=== PATIENT | male | born 1950 ===

== ENCOUNTER 2020-07-07 21:42 | Inpatient (IN) | payer MEDICARE, OTHER ==
[~2020-07-07] VITALS: Ht 175.3 cm; Wt 81.6 kg
[2020-07-07] MEDS ORDERED: POLY17PO4 PO (22:19)
[2020-07-07] MEDS ORDERED: RISP1TAB97 PO (22:19)
[2020-07-07] MEDS ORDERED: SENN-261 PO (22:19)
[2020-07-07] MEDS ORDERED: DIPH50CA37 PO (22:19)
[2020-07-07] MEDS ORDERED: ASPI81TA31 PO (22:19)
[2020-07-07] MEDS ORDERED: HALO2TAB PO (22:19)
[2020-07-07] MEDS ORDERED: ATOR40TA PO (22:19)
[2020-07-07] MEDS ORDERED: ACET-73 PO (22:19)
[2020-07-07] MEDS ORDERED: diphenhydrAMINE 50 MG CAPSULE PO PRN (22:30)
[2020-07-07] MEDS ORDERED: MAGNESIUM HYDROXIDE 30 ML LIQUID UDC PO PRN (22:30)
[2020-07-07] MEDS ORDERED: SENNOSIDES 1 TABLET PO PRN (22:30)
[2020-07-07] MEDS ORDERED: ZOLPIDEM 5 MG TABLET PO PRN (22:30)
[2020-07-07] MEDS ORDERED: MAG HYDROX/AL HYDROX/SIMETH 30 ML LIQUID UDC PO PRN (22:30)
[2020-07-07] MEDS ORDERED: BLOOD SUGAR DIAGNOSTIC 1 EACH STRIP VI ONE (22:30)
[2020-07-07] MEDS ORDERED: MIRALAX 17 GM POWD.PACK PO PRN (22:30)
[2020-07-07] MEDS ORDERED: ACETAMINOPHEN 325 MG TABLET PO PRN (22:30)
[2020-07-08 07:03] LABS: BASOPHILS # (AUTO) 0.1 K/uL (0.0-8.0); BASOPHILS % (AUTO) 0.9 % (0.0-2.0); EOSINOPHILS # (AUTO) 0.4 K/uL (0.0-0.7); EOSINOPHILS % (AUTO) 5.9 % (0.0-7.0); HEMATOCRIT 43.1 % (36.7-47.1); HEMOGLOBIN 14.1 g/dL (12.5-16.3); LYMPHOCYTES # (AUTO) 1.5 K/uL (20.0-40.0); LYMPHOCYTES % (AUTO) 19.8 % (20.5-51.5); MEAN CORPUSCULAR HEMOGLOBIN 29.9 uug (23.8-33.4); MEAN CORPUSCULAR HGB CONC 33 g/dL (32.5-36.3); MONOCYTES # (AUTO) 0.6 K/uL (2.0-10.0); MONOCYTES % (AUTO) 7.6 % (0.0-11.0); NEUTROPHILS # (AUTO) 4.9 K/uL (1.8-8.9); NEUTROPHILS % (AUTO) 65.8 % (38.5-71.5); PLATELET COUNT (AUTO) 285 K/uL (152-348); RED BLOOD CELL COUNT(AUTO) 4.73 MIL/uL (4.06-5.63); WHITE BLOOD COUNT (AUTO) 7.4 K/uL (3.6-10.2)
[2020-07-08 07:26] LABS: THYROID STIMULATING HORMONE 5.865 mIU/mL (0.358-3.740)
[2020-07-08 07:30] VITALS: BP 135/86
[2020-07-08 07:46] LABS: BILIRUBIN,TOTAL 0.4 mg/dL (0.2-1.0); MAGNESIUM 2.1 mg/dL (1.8-2.4); POTASSIUM 4.1 mmol/L (3.5-5.1)
[2020-07-08] MEDS: ASPIRIN 81 MG TAB.CHEW PO SCH (08:36)
[2020-07-08] MEDS: LORAZEPAM 0.5 MG TABLET PO PRN (15:15)
[2020-07-08 15:33] VITALS: BP 118/83
[2020-07-08] MEDS: risperiDONE 1 MG TABLET PO SCH (16:29)
[2020-07-08] MEDS: CLOTRIMAZOLE 1% CREAM 30 GM TUBE TOP SCH (17:00)
[2020-07-08 20:14] VITALS: BP 126/69
[2020-07-08] MEDS: DIVALPROEX SPRINKLE 125 MG CAP.SPRINK PO SCH (20:14)
[2020-07-08] MEDS: ATORVASTATIN 40 MG TABLET PO SCH (20:14)
[2020-07-09 07:30] VITALS: BP 113/69
[2020-07-09] MEDS: ASPIRIN 81 MG TAB.CHEW PO SCH (08:04)
[2020-07-09] MEDS: risperiDONE 1 MG TABLET PO SCH ×2 (08:04→18:35)
[2020-07-09] MEDS: DIVALPROEX SPRINKLE 125 MG CAP.SPRINK PO SCH ×2 (08:04→22:33)
[2020-07-09] MEDS: CLOTRIMAZOLE 1% CREAM 30 GM TUBE TOP SCH ×2 (09:00→17:00)
[2020-07-09 16:00] VITALS: BP 115/71
[2020-07-09 20:37] VITALS: BP 115/73
[2020-07-09] MEDS: ATORVASTATIN 40 MG TABLET PO SCH (22:33)
[2020-07-10] MEDS: ASPIRIN 81 MG TAB.CHEW PO SCH (08:29)
[2020-07-10] MEDS: risperiDONE 1 MG TABLET PO SCH ×2 (08:29→17:37)
[2020-07-10] MEDS: DIVALPROEX SPRINKLE 125 MG CAP.SPRINK PO SCH ×2 (08:30→20:57)
[2020-07-10] MEDS: CLOTRIMAZOLE 1% CREAM 30 GM TUBE TOP SCH ×2 (08:33→17:37)
[2020-07-10] MEDS: LORAZEPAM 0.5 MG TABLET PO PRN (12:29)
[2020-07-10 16:37] VITALS: BP 105/64
[2020-07-10 20:17] VITALS: BP 116/62
[2020-07-10] MEDS: ATORVASTATIN 40 MG TABLET PO SCH (20:56)
[2020-07-11 07:30] VITALS: BP 99/60
[2020-07-11] MEDS: CLOTRIMAZOLE 1% CREAM 30 GM TUBE TOP SCH ×2 (08:23→16:16)
[2020-07-11] MEDS: DIVALPROEX SPRINKLE 125 MG CAP.SPRINK PO SCH ×2 (08:24→20:23)
[2020-07-11] MEDS: ASPIRIN 81 MG TAB.CHEW PO SCH (08:24)
[2020-07-11] MEDS: risperiDONE 1 MG TABLET PO SCH ×3 (08:24→20:23)
[2020-07-11 16:22] VITALS: BP 121/78
[2020-07-11 20:23] VITALS: BP 126/69
[2020-07-11] MEDS: ATORVASTATIN 40 MG TABLET PO SCH (20:23)
[2020-07-12 07:30] VITALS: BP 115/64
[2020-07-12] MEDS: ASPIRIN 81 MG TAB.CHEW PO SCH (08:15)
[2020-07-12] MEDS: risperiDONE 1 MG TABLET PO SCH ×3 (08:16→20:27)
[2020-07-12] MEDS: CLOTRIMAZOLE 1% CREAM 30 GM TUBE TOP SCH ×2 (08:16→16:54)
[2020-07-12] MEDS: DIVALPROEX SPRINKLE 125 MG CAP.SPRINK PO SCH ×2 (08:16→20:27)
[2020-07-12 15:55] VITALS: BP 105/70
[2020-07-12] MEDS: ATORVASTATIN 40 MG TABLET PO SCH (20:28)
[2020-07-12 20:36] VITALS: BP 118/73
[2020-07-13 08:00] VITALS: BP 111/73
[2020-07-13] MEDS: ASPIRIN 81 MG TAB.CHEW PO SCH (08:26)
[2020-07-13] MEDS: risperiDONE 1 MG TABLET PO SCH ×3 (08:27→20:25)
[2020-07-13] MEDS: DIVALPROEX SPRINKLE 125 MG CAP.SPRINK PO SCH ×2 (08:27→20:25)
[2020-07-13] MEDS: CLOTRIMAZOLE 1% CREAM 30 GM TUBE TOP SCH ×2 (08:29→16:06)
[2020-07-13 16:00] VITALS: BP 94/53
[2020-07-13 20:00] VITALS: BP 115/71
[2020-07-13] MEDS: ATORVASTATIN 40 MG TABLET PO SCH (20:25)
[2020-07-14 07:30] VITALS: BP 120/76
[2020-07-14] MEDS: risperiDONE 1 MG TABLET PO SCH ×3 (08:40→20:36)
[2020-07-14] MEDS: DIVALPROEX SPRINKLE 125 MG CAP.SPRINK PO SCH ×2 (08:40→20:36)
[2020-07-14] MEDS: ASPIRIN 81 MG TAB.CHEW PO SCH (08:40)
[2020-07-14] MEDS: CLOTRIMAZOLE 1% CREAM 30 GM TUBE TOP SCH ×2 (08:41→16:27)
[2020-07-14 09:29] LABS: *BILIRUBIN,URIN NEGATIVE (NEGATIVE); *CLARITY,URINE CLEAR (CLEAR); *COLOR,URINE YELLOW (YELLOW); *KETONES,URINE NEGATIVE (NEGATIVE); *UROBILINOGEN,URINE 0.2 E.U./dl (NORMAL); LEUKOCYTE ESTERASE ,URINE NEGATIVE (NEGATIVE); NITRITE, URINE NEGATIVE (NEGATIVE); UGLUCOSE NEGATIVE (NEGATIVE)
[2020-07-14 10:09] LABS: *BLOOD, URINE TRACE (NEGATIVE)
[2020-07-14 12:50] LABS: SQUAMOUS EPITHELIAL CELL,UR FEW /HPF (NONE SEEN); WBC,URINE 0-3 /HPF (0-3)
[2020-07-14 12:51] LABS: BACTERIA,URINE MODERATE /HPF (NONE SEEN)
[2020-07-14 16:00] VITALS: BP 134/81
[2020-07-14 20:00] VITALS: BP 127/72
[2020-07-14] MEDS: ATORVASTATIN 40 MG TABLET PO SCH (20:36)
[2020-07-15 07:30] VITALS: BP 117/68
[2020-07-15] MEDS: CLOTRIMAZOLE 1% CREAM 30 GM TUBE TOP SCH ×2 (08:23→16:46)
[2020-07-15] MEDS: ASPIRIN 81 MG TAB.CHEW PO SCH (08:23)
[2020-07-15] MEDS: DIVALPROEX SPRINKLE 125 MG CAP.SPRINK PO SCH ×2 (08:23→20:05)
[2020-07-15] MEDS: risperiDONE 1 MG TABLET PO SCH ×3 (08:23→20:05)
[2020-07-15 16:00] VITALS: BP 115/73
[2020-07-15 20:00] VITALS: BP 112/73
[2020-07-15] MEDS: ATORVASTATIN 40 MG TABLET PO SCH (20:05)
[2020-07-16 07:30] VITALS: BP 118/64
[2020-07-16] MEDS: ASPIRIN 81 MG TAB.CHEW PO SCH (10:34)
[2020-07-16] MEDS: risperiDONE 1 MG TABLET PO SCH ×3 (10:34→20:40)
[2020-07-16] MEDS: CLOTRIMAZOLE 1% CREAM 30 GM TUBE TOP SCH ×2 (10:35→17:00)
[2020-07-16] MEDS: DIVALPROEX SPRINKLE 125 MG CAP.SPRINK PO SCH ×2 (10:35→20:40)
[2020-07-16] MEDS: NITROFURANTOIN/NITROFURAN MAC 100 MG CAPSULE PO SCH ×2 (12:36→20:39)
[2020-07-16 16:30] VITALS: BP 98/52
[2020-07-16 20:38] VITALS: BP 128/78
[2020-07-16] MEDS: ATORVASTATIN 40 MG TABLET PO SCH (20:39)
[2020-07-17 07:30] VITALS: BP 124/76
[2020-07-17] MEDS ORDERED: DOCUSATE SODIUM 250 MG CAPSULE PO SCH (10:15)
[2020-07-17] MEDS: DIVALPROEX SPRINKLE 125 MG CAP.SPRINK PO SCH (10:32)
[2020-07-17] MEDS: NITROFURANTOIN/NITROFURAN MAC 100 MG CAPSULE PO SCH (10:32)
[2020-07-17] MEDS: risperiDONE 1 MG TABLET PO SCH (10:32)
[2020-07-17] MEDS: ASPIRIN 81 MG TAB.CHEW PO SCH (10:32)
[2020-07-17] MEDS: CLOTRIMAZOLE 1% CREAM 30 GM TUBE TOP SCH (10:33)
[2020-07-17] MEDS ORDERED: SENNOSIDES 1 TABLET PO SCH (21:00)
== END 2020-07-17 15:15 | DRG 885 ==
LOC: ER 21:48 → GPS 22:24 → EDBD 22:24
PROVIDERS: ADMIT Psychiatry & Neurology Psychiatry
PROC: 0HBRXZZ Excision of Toe Nail, External Approach (ICD-10-PCS; principal; 2020-07-08)
DX: F31.2 Bipolar disorder, current episode manic severe with psychotic features (principal); B95.2 Enterococcus as the cause of diseases classified elsewhere; N39.0 Urinary tract infection, site not specified; B35.1 Tinea unguium; I25.2 Old myocardial infarction; E78.5 Hyperlipidemia, unspecified; L60.2 Onychogryphosis; I25.10 Atherosclerotic heart disease of native coronary artery without angina pectoris; Z73.6 Limitation of activities due to disability; M79.672 Pain in left foot; M79.671 Pain in right foot; Z20.822 Contact with and (suspected) exposure to COVID-19; B96.1 Klebsiella pneumoniae [K. pneumoniae] as the cause of diseases classified elsewhere
CPT/HCPCS: 36415; 80164; 82652; 83735; 84100; 84443; 84481; 85025; 87077; 87086; A4663

== ENCOUNTER 2020-11-13 00:19 | Inpatient (IN) | payer MEDICARE, OTHER ==
[~2020-11-13] VITALS: Ht 167.6 cm; Wt 97.1 kg
[~2020-11-13 00:19] MED LIST: ACET-73 PO; ASPI81TA31 PO; ATOR40TA PO; DIPH50CA37 PO; POLY17PO4 PO; SENN-261 PO
--- NOTE | 2020-11-13 00:35 | NUR ---
PT BIB EMT from [facility] for a on 515 for DTS and GD; had delusions was trying to turn his room into a dental clinic. No SI. A/O x3, no SOB or labored breathing, afebrile. clear speech, complete sentences.
--- NOTE | 2020-11-13 00:36 | NUR ---
Dr. Moser at bedside, MSE in progress.
[2020-11-13 00:47] LABS: HEMATOCRIT 42.6 % (36.7-47.1); MEAN CORPUSCULAR HEMOGLOBIN 29.9 uug (23.8-33.4); MEAN CORPUSCULAR VOLUME 87.8 fL (73.0-96.2); PLATELET COUNT (AUTO) 261 K/uL (152-348)
[2020-11-13 00:54] LABS: CREATININE 1.3 mg/dL (0.6-1.3); POTASSIUM 4.2 mmol/L (3.5-5.1)
[2020-11-13 01:05] LABS: ACETAMINOPHEN < 2.0 ug/mL (10-30); BILIRUBIN,TOTAL 0.5 mg/dL (0.2-1.0); TOTAL PROTEIN, SERUM 8.3 g/dL (6.4-8.2)
[2020-11-13 01:07] LABS: ETHANOL < 3 MG/DL (0-0)
[2020-11-13 01:35] LABS: *BILIRUBIN,URIN NEGATIVE (NEGATIVE); *BLOOD, URINE 2+ (NEGATIVE); *CLARITY,URINE CLEAR (CLEAR); *KETONES,URINE NEGATIVE (NEGATIVE); *UROBILINOGEN,URINE 0.2 E.U./dl (NORMAL); LEUKOCYTE ESTERASE ,URINE NEGATIVE (NEGATIVE); NITRITE, URINE NEGATIVE (NEGATIVE); UGLUCOSE NEGATIVE (NEGATIVE)
[2020-11-13 01:37] LABS: *COLOR,URINE STRAW (YELLOW)
[2020-11-13 01:47] LABS: BACTERIA,URINE NONE SEEN /HPF (NONE SEEN); RBC,URINE 0-3 /HPF (0-3); SQUAMOUS EPITHELIAL CELL,UR NONE SEEN /HPF (NONE SEEN); WBC,URINE 0-3 /HPF (0-3)
[2020-11-13 01:50] LABS: *AMPHETAMINE, URINE NEGATIVE (NEGATIVE); *CANNABINOID, URINE NEGATIVE (NEGATIVE); *COCCAINE, URINE NEGATIVE (NEGATIVE); *OPIATE, URINE NEGATIVE (NEGATIVE); *PHENCYCLIDINE SCREEN,URINE NEGATIVE (NEGATIVE)
--- NOTE | 2020-11-13 02:45 | NUR ---
GAVE REPORT TO SPEEDY IN [facility].
--- NOTE | 2020-11-13 03:05 | NUR ---
Pt. admitted to MHU , under care of Dr. Nunez and Dr. Lee Dx: psychosis 5150 hold GTS and GD. Belongs List completed
--- NOTE | 2020-11-13 03:05 | NUR ---
Patient admitted to MHU. Patient was brought in via wheelchair by ER staff. Patient is under the care of Dr. Lee and Dr. Nunez. Patient shows no sign or symptom of respiratory distress, breathing even, unlabored. No indication of pain or discomfort. Cooperative during admission. Explained rules and policy. Oriented to the environment. Skin assessment done. No significant finding. Skin intact. Valuables and belongings checked and were place in storage. Patient was given advisement. Patient will remain in a psych facility for further evalaution and treatment.
[2020-11-13] MEDS ORDERED: ACETAMINOPHEN 650 MG SUPP.RECT RC PRN (04:00)
[2020-11-13 06:46] VITALS: BP 134/95
[2020-11-13 07:30] VITALS: BP 125/78
--- NOTE | 2020-11-13 09:58 | NUR ---
Firearms Report: Azure Developer completed and submitted a [employer]J firearms report for 5150 grave disability certifications. A copy of report has been placed in patient chart.
--- NOTE | 2020-11-13 10:21 | NUR ---
JUANIS Initial Discharge Plan: Patient currently resides at [address] [address] ([phone]) and will return upon discharge. Patient's nephew Geraldo Segura ([phone]) is involved in the patient's care and is the DPOA. JUANIS will continue to work with patient, family, and MD to ensure a safe and proper discharge plan.
--- NOTE | 2020-11-13 10:22 | NUR ---
Treatment Plan: Patient refused to sign treatment plan due to disorganized thought process.
--- NOTE | 2020-11-13 10:22 | NUR ---
SW SNF Contact: JUANIS spoke with Ana Rosa admin coordinator at [facility] [address] [facility], [place] [address] ([phone]) who confirmed that patient will return upon discharge.
--- NOTE | 2020-11-13 10:28 | NUR ---
JUANIS Family Contact: JUANIS spoke with patient's nephew Geraldo Segura ([phone]) and discussed treatment and discharge plan. Geraldo will be sending DPOA documents to this senior copywriter.
[2020-11-13] MEDS ORDERED: MIRALAX 17 GM POWD.PACK PO PRN (11:15)
[2020-11-13] MEDS ORDERED: SENNOSIDES 1 TABLET PO PRN (11:15)
[2020-11-13] MEDS ORDERED: hydrALAZINE HCL 25 MG TABLET PO PRN (12:00)
[2020-11-13] MEDS: ASPIRIN 81 MG TAB.CHEW PO SCH (12:38)
--- NOTE | 2020-11-13 13:09 | NUR ---
DPOA DOCUMENTS: Patient's son Geraldo Segura ([phone]) provided the DPOA documents and they have been placed in the patient's chart.
[2020-11-13 16:00] VITALS: BP 138/90
[2020-11-13] MEDS: risperiDONE 1 MG TABLET PO SCH ×2 (17:11→20:28)
--- NOTE | 2020-11-13 18:14 | NUR ---
GPS: pt alert and oriented x3. pt no suicidal ideation at this time. no aggrssive behavior noted. attention seeking and asking nurse for personal questions, like asking for last name. pt still insisted of asking to be discharge because he has to be in an important meeting.
[2020-11-13 20:00] VITALS: BP 110/85
[2020-11-13] MEDS: DIVALPROEX 250 MG TABLET.DR PO SCH (20:27)
[2020-11-13] MEDS: ATORVASTATIN 40 MG TABLET PO SCH (20:27)
--- NOTE | 2020-11-13 21:17 | NUR ---
AAOx3. Ambulatory with walker. Continent of bowel and bladder. Denies any pain nor any discomfort. Calm and cooperative. No aggresive behavior noted. No suicidal ideation noted. All needs attended. VSS. Kept comfortable. Will monitor patient. Compliant with meds. No acute distress noted.
--- NOTE | 2020-11-14 06:34 | NUR ---
End of shift notes: Had a quiet night last night. No behavioral issues noted. Slept 7hrs & 45 minutes. No complaints presented during shift.
[2020-11-14 07:19] LABS: BILIRUBIN,TOTAL 0.5 mg/dL (0.2-1.0); CREATININE 1.1 mg/dL (0.6-1.3); POTASSIUM 4.4 mmol/L (3.5-5.1); TOTAL PROTEIN, SERUM 7.3 g/dL (6.4-8.2)
[2020-11-14 07:30] VITALS: BP 119/79
[2020-11-14] MEDS: DIVALPROEX 250 MG TABLET.DR PO SCH ×2 (08:40→20:03)
[2020-11-14] MEDS: ASPIRIN 81 MG TAB.CHEW PO SCH (08:41)
[2020-11-14] MEDS: risperiDONE 1 MG TABLET PO SCH ×3 (08:41→20:04)
[2020-11-14 16:37] VITALS: BP 120/85
--- NOTE | 2020-11-14 18:13 | NUR ---
GPS: pt alert and verbally responsive during the shift. no pain complaint today. pt still looks for attention. talking about how he wants to go out of this place to go to his rehab place to get an important thing
[2020-11-14] MEDS: ATORVASTATIN 40 MG TABLET PO SCH (20:03)
[2020-11-14 20:20] VITALS: BP 150/88
[2020-11-14] MEDS: TEMAZEPAM 7.5 MG CAPSULE PO PRN (22:05)
--- NOTE | 2020-11-15 06:22 | NUR ---
Patient slept 1.30 hrs.No episodes of agitation and combative during the shift. Compliant with medication and tx.Ambulates with the use of walker. Patient noted falling asleep in the chair in his room.Assisted patient back to his bed. Denies SI/HI.Restoril was given and was ineffective. Offered ativan but refused .
[2020-11-15 07:30] VITALS: BP 113/65
[2020-11-15] MEDS: ASPIRIN 81 MG TAB.CHEW PO SCH (08:29)
[2020-11-15] MEDS: risperiDONE 1 MG TABLET PO SCH ×3 (08:30→20:51)
[2020-11-15] MEDS: DIVALPROEX 250 MG TABLET.DR PO SCH ×2 (08:30→20:51)
[2020-11-15 15:15] VITALS: BP 144/82
[2020-11-15] MEDS: ACETAMINOPHEN 325 MG TABLET PO PRN (16:12)
[2020-11-15] MEDS ORDERED: MAGNESIUM HYDROXIDE 30 ML LIQUID UDC PO PRN (16:15)
[2020-11-15] MEDS: MAG HYDROX/AL HYDROX/SIMETH 30 ML LIQUID UDC PO PRN (16:30)
[2020-11-15 20:01] VITALS: BP 141/82
[2020-11-15] MEDS: ATORVASTATIN 40 MG TABLET PO SCH (20:51)
[2020-11-15] MEDS: LORAZEPAM 1 MG TABLET PO PRN (21:10)
[2020-11-15] MEDS: TEMAZEPAM 7.5 MG CAPSULE PO PRN (22:28)
[2020-11-15] MEDS: diphenhydrAMINE 50 MG CAPSULE PO PRN (22:29)
[2020-11-16 07:43] LABS: BILIRUBIN,TOTAL 0.9 mg/dL (0.2-1.0); POTASSIUM 3.8 mmol/L (3.5-5.1); TOTAL PROTEIN, SERUM 6.5 g/dL (6.4-8.2)
[2020-11-16] MEDS: ASPIRIN 81 MG TAB.CHEW PO SCH (09:06)
[2020-11-16] MEDS: DIVALPROEX 250 MG TABLET.DR PO SCH ×3 (09:06→16:34)
[2020-11-16] MEDS: risperiDONE 1 MG TABLET PO SCH ×3 (09:06→21:13)
[2020-11-16 09:10] VITALS: BP 102/62
[2020-11-16] MEDS ORDERED: ZOLPIDEM 5 MG TABLET PO PRN (12:30)
--- NOTE | 2020-11-16 13:01 | NUR ---
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
[2020-11-16] MEDS: ACETAMINOPHEN 325 MG TABLET PO PRN ×2 (14:34→21:10)
[2020-11-16] MEDS: LORAZEPAM 1 MG TABLET PO PRN (14:34)
[2020-11-16 16:35] VITALS: BP 118/77
[2020-11-16 20:00] VITALS: BP 124/79
[2020-11-16] MEDS: diphenhydrAMINE 50 MG CAPSULE PO PRN (21:10)
[2020-11-16] MEDS: ATORVASTATIN 40 MG TABLET PO SCH (21:10)
[2020-11-17] MEDS: MAG HYDROX/AL HYDROX/SIMETH 30 ML LIQUID UDC PO PRN (03:15)
[2020-11-17 06:50] LABS: HEMATOCRIT 39.3 % (36.7-47.1); MEAN CORPUSCULAR HEMOGLOBIN 30.9 uug (23.8-33.4); MEAN CORPUSCULAR VOLUME 89.3 fL (73.0-96.2); PLATELET COUNT (AUTO) 245 K/uL (152-348)
[2020-11-17 07:08] LABS: BILIRUBIN,TOTAL 0.6 mg/dL (0.2-1.0); CREATININE 1.1 mg/dL (0.6-1.3); TOTAL PROTEIN, SERUM 8.1 g/dL (6.4-8.2)
[2020-11-17 07:14] LABS: MAGNESIUM 2.2 mg/dL (1.8-2.4); PHOSPHOROUS 3.4 mg/dL (2.5-4.9)
[2020-11-17 07:46] VITALS: BP 113/85
[2020-11-17] MEDS: risperiDONE 1 MG TABLET PO SCH ×3 (08:14→21:01)
[2020-11-17] MEDS: LORAZEPAM 1 MG TABLET PO PRN ×2 (08:14→16:54)
[2020-11-17] MEDS: ASPIRIN 81 MG TAB.CHEW PO SCH (08:15)
[2020-11-17] MEDS: ACETAMINOPHEN 325 MG TABLET PO PRN ×3 (08:15→23:50)
[2020-11-17] MEDS: DIVALPROEX 250 MG TABLET.DR PO SCH ×3 (08:15→16:36)
[2020-11-17] MEDS ORDERED: HYDROCODONE/APAP 5-325MG TABLET PO PRN (11:00)
[2020-11-17 16:48] VITALS: BP 128/89
--- NOTE | 2020-11-17 17:38 | NUR ---
GPS: Nursing Notes: X-Ray of Right Ankle: Dr. Medrano informed of right ankle x-ray, Per Dr. Medrano to transfer patient to Med. Surg. with a Dx: Right ankle fracture, informed charge nurse and nursing cold storage supervisor, continue to monitor patient for safety, continue with treatment plan.
[2020-11-17] MEDS ORDERED: DIVA250T4 PO (17:46)
--- NOTE | 2020-11-17 18:05 | NUR ---
GPS: Nursing Notes: Discharge to Med. Surg: Dr. Lee informed of patient right ankle fracture, ordered to discharge patient to Med. Surg., and to discontinue 5250, continue with his psych. medications, continue to monitor for safety.
--- NOTE | 2020-11-17 19:12 | NUR ---
GPS: Nursing Notes: Discharge to Med. Surg: Med. Surg. discharge of patient endorsed to incoming shift nurse to continue with discharge process per physician's order.
--- NOTE | 2020-11-17 20:00 | NUR ---
received to care, up in wheel chair, propelling self in hallway, pleasant upon support. denies s/i, no distress noted. pt is aware of planned transfer to med surgical floor. compliant with medications and staff direction. will continue to monitor closely.
[2020-11-17 20:08] VITALS: BP 126/84
[2020-11-17] MEDS: ATORVASTATIN 40 MG TABLET PO SCH (21:01)
--- NOTE | 2020-11-17 22:32 | NUR ---
pt remains on unit. assigned to room 303. Dr Medrano was called, and notified of room number, and that pt will be transferred shortly.
--- NOTE | 2020-11-17 22:46 | NUR ---
pt transfered to room 303, via wheelchair. pt left unit in no distress, denied any current pain.
--- NOTE | 2020-11-17 23:25 | NUR ---
CORRECTION OF PREVIOUS NOTE; pt has not been transferred yet, currently in room, awaiting transfer, quietly talking to himself.
--- NOTE | 2020-11-18 | NUR ---
pt transferred to med surg room, via wheelchair, in no acute distress. medicated with tylenol for right foot pain. report given to BAN driscoll
[2020-11-18] MEDS ORDERED: HYDR25TA86 PO (01:44)
[2020-11-18] MEDS ORDERED: HYDR-3972 PO (01:44)
[2020-11-18] MEDS ORDERED: LORA-259 PO (01:44)
[2020-11-18] MEDS ORDERED: MAGN400O6 PO (01:44)
[2020-11-18] MEDS ORDERED: RISP1TAB7 PO ×2 (01:44)
[2020-11-18] MEDS ORDERED: ZOLP10TA2 PO (01:44)
--- NOTE | 2020-11-18 08:18 | NUR ---
Transfer Note: Patient was transferred to medical floor for fracture. Dr. Lee discontinued hold. Patient is from [facility] [address] [place] [address] ([phone]). Cezar Chow ([phone]) is involved in patient's care. Dr. Lee will follow pt at [place].
[2020-11-24] MEDS ORDERED: RISP1TAB7 PO ×2 (13:38)
[2020-11-24] MEDS ORDERED: ACET325T53 PO (13:38)
[2020-11-24] MEDS ORDERED: SENN-18 PO (13:38)
[2020-11-24] MEDS ORDERED: MULT-594 PO (13:38)
[2020-11-24] MEDS ORDERED: ATOR10TA PO (13:38)
[2020-11-24] MEDS ORDERED: HYDR-894 PO (13:38)
[2020-11-24] MEDS ORDERED: HYDR-3980 PO (13:38)
== END 2020-11-18 | disposition short-term general hospital (02) | DRG 885 ==
LOC: ER 00:22 → GPS 02:40
PROVIDERS: ADMIT Psychiatry & Neurology Psychiatry; ATTEND Internal Medicine
DX: F31.2 Bipolar disorder, current episode manic severe with psychotic features (principal); E87.1 Hypo-osmolality and hyponatremia; E78.5 Hyperlipidemia, unspecified; I10 Essential (primary) hypertension; I25.10 Atherosclerotic heart disease of native coronary artery without angina pectoris; R63.1 Polydipsia; Z73.6 Limitation of activities due to disability; Z20.822 Contact with and (suspected) exposure to COVID-19; S82.51XA Displaced fracture of medial malleolus of right tibia, initial encounter for closed fracture; X58.XXXA Exposure to other specified factors, initial encounter; Y93.9 Activity, unspecified; Y92.129 Unspecified place in nursing home as the place of occurrence of the external cause
CPT/HCPCS: 36415; 71045; 73610; 80164; 83735; 83930; 83935; 84100; 84300; 85025; 93005; 97161; A4663; G0480; J3490; Q0163

== ENCOUNTER 2020-11-18 01:06 | Inpatient (IN) | payer MEDICARE, OTHER ==
[2020-11-17 23:30] VITALS: BP 109/67
--- NOTE | 2020-11-17 23:30 | NUR ---
RECEIVED PT FROM MHU VIA WHEELCHAIR. PT IN NO ACUTE DISTRESS. ADMISSION PROCESS AND CARE PLAN INITIATED. BELONGING LIST DONE. SAFETY AND COMFORT PROVIDED. WILL CONTINUE TO MONITOR.
[~2020-11-18] VITALS: Ht 165.1 cm; Wt 97.2 kg
[~2020-11-18 01:06] MED LIST changes: +DIVA250T4 PO
[2020-11-18] MEDS ORDERED: HYDR-3972 PO (01:44)
[2020-11-18] MEDS ORDERED: RISP1TAB7 PO ×2 (01:44)
[2020-11-18] MEDS ORDERED: LORA-259 PO (01:44)
[2020-11-18] MEDS ORDERED: MAGN400O6 PO (01:44)
[2020-11-18] MEDS ORDERED: ZOLP10TA2 PO (01:44)
[2020-11-18] MEDS ORDERED: HYDR25TA86 PO (01:44)
[2020-11-18 04:30] VITALS: BP 115/74
--- NOTE | 2020-11-18 05:19 | NUR ---
PT SLEPT INTERMITTENTLY. PT IN NO ACUTE DISTRESS. IV INTACT. SAFETY AND COMFORT PROVIDED. WILL ENDORSE TO INCOMING NURSE FOR CONTINUITY OF CARE.
[2020-11-18 06:28] LABS: HEMATOCRIT 35.5 % (36.7-47.1); MEAN CORPUSCULAR HEMOGLOBIN 30.7 uug (23.8-33.4); MEAN CORPUSCULAR VOLUME 89.4 fL (73.0-96.2); PLATELET COUNT (AUTO) 220 K/uL (152-348)
[2020-11-18 06:56] LABS: CREATININE 1.1 mg/dL (0.6-1.3); MAGNESIUM 2.2 mg/dL (1.8-2.4); PHOSPHOROUS 4.2 mg/dL (2.5-4.9); POTASSIUM 4.4 mmol/L (3.5-5.1)
--- NOTE | 2020-11-18 08:19 | NUR ---
Transfer Note: Patient was transferred to medical floor for fracture. Dr. Lee discontinued hold. Patient is from [facility] [address] [place] [address] ([phone]). Cezar Chow ([phone]) is involved in patient's care. Dr. Lee will follow pt at [place].
[2020-11-18 11:53] VITALS: BP 110/79
[2020-11-18] MEDS ORDERED: MIRALAX 17 GM POWD.PACK PO PRN (12:00)
[2020-11-18] MEDS ORDERED: hydrALAZINE HCL 25 MG TABLET PO PRN (12:00)
[2020-11-18] MEDS ORDERED: SENNOSIDES 1 TABLET PO PRN (12:00)
[2020-11-18] MEDS ORDERED: diphenhydrAMINE 50 MG CAPSULE PO PRN (12:00)
[2020-11-18] MEDS: DIVALPROEX 250 MG TABLET.DR PO SCH ×2 (13:25→16:56)
[2020-11-18] MEDS: CEFAZOLIN 2 G in IV DEXTROSE 5% 100 ML IV SCH ×2 (13:43→21:18)
[2020-11-18 15:58] VITALS: BP 136/87
[2020-11-18] MEDS: risperiDONE 1 MG TABLET PO SCH ×2 (16:56→20:32)
--- NOTE | 2020-11-18 18:30 | NUR ---
Received patient in his room, noted with episodes of delusions, he stated he is writing a script, that he needs someone to sign as witness. All needs attended. Informed MD regarding medication reconciliation. All due medications was given. Frequent safety checks done. Informed the patient to use the call light, he is high risk for falls. He walks to the bathroom unaware of safety measures with the use of his cane. No distress noted. denies pain. Will endorse to the next shift.
--- NOTE | 2020-11-18 20:12 | NUR ---
Received patient in his wheelchair.Able to wheeled himself in the hallway.Assisted patient back to his room. Continue to be delusional stated he wants to continue to write a script.Patient calm and pleasant upon approach.Compliant with medication.Adm IV ATb as ordered. No a/r noted. Ambien given for sleep.Noted ineffective. Quite environment provided.Will continue to monitor.
[2020-11-18] MEDS: ZOLPIDEM 5 MG TABLET PO PRN (21:19)
[2020-11-18] MEDS: HYDROCODONE/APAP 5-325MG TABLET PO PRN (22:32)
[2020-11-19] MEDS: CEFAZOLIN 2 G in IV DEXTROSE 5% 100 ML IV SCH ×3 (05:41→21:27)
[2020-11-19 06:05] LABS: HEMATOCRIT 37.8 % (36.7-47.1); MEAN CORPUSCULAR HEMOGLOBIN 30.5 uug (23.8-33.4); MEAN CORPUSCULAR VOLUME 89.7 fL (73.0-96.2); PLATELET COUNT (AUTO) 261 K/uL (152-348)
[2020-11-19 06:25] LABS: BILIRUBIN,TOTAL 0.4 mg/dL (0.2-1.0); CREATININE 1.1 mg/dL (0.6-1.3); MAGNESIUM 2.1 mg/dL (1.8-2.4); PHOSPHOROUS 3.3 mg/dL (2.5-4.9); POTASSIUM 4.2 mmol/L (3.5-5.1); TOTAL PROTEIN, SERUM 8.1 g/dL (6.4-8.2)
--- NOTE | 2020-11-19 08:00 | NUR ---
awake alert, wanting somebody to stay and talk with him, denies of pain, both lower extremities swollen, compliant with meds and care, safety measures maintained
--- NOTE | 2020-11-19 10:00 | NUR ---
sitting in a wheelchair and goes on the hallway but been instructed not to go far
[2020-11-19] MEDS: risperiDONE 1 MG TABLET PO SCH ×3 (10:29→20:28)
[2020-11-19] MEDS: ASPIRIN 81 MG TAB.CHEW PO SCH (10:29)
[2020-11-19] MEDS: DIVALPROEX 250 MG TABLET.DR PO SCH ×3 (10:29→16:55)
[2020-11-19 11:15] VITALS: BP 125/80
--- NOTE | 2020-11-19 15:00 | NUR ---
seen by Dr Lee- see notes
[2020-11-19 15:51] VITALS: BP 138/81
--- NOTE | 2020-11-19 17:23 | NUR ---
no distress noted, compliant with care, answers questions when asked, call light within reach
[2020-11-19 20:00] VITALS: BP 126/84
[2020-11-19] MEDS ORDERED: ATORVASTATIN 20 MG TABLET PO SCH (21:00)
[2020-11-20 04:12] VITALS: BP 140/89
--- NOTE | 2020-11-20 05:00 | NUR ---
Pt in wheelchair, able to wheel himself around. Denies pain or SOB. IV was not flushing well, new IV inserted. Able to make needs known. Patient exhibits needy behavior. Safety and comfort provided. No other issues or concerns at this time, will endorse to day shift.
[2020-11-20] MEDS: ACETAMINOPHEN 325 MG TABLET PO PRN (05:48)
[2020-11-20] MEDS: CEFAZOLIN 2 G in IV DEXTROSE 5% 100 ML IV SCH ×3 (05:48→21:51)
--- NOTE | 2020-11-20 07:40 | NUR ---
Received patient on his wheelchair. No distress noted. IV intact. Seen by Dr. Lee. Follow up with Dr. Luevano, for consultation. Patient denies pain. Safety checks done. Will continue to monitor.
[2020-11-20 08:00] VITALS: BP 122/64
[2020-11-20 08:04] VITALS: BP 113/79
[2020-11-20] MEDS: ASPIRIN 81 MG TAB.CHEW PO SCH (08:23)
[2020-11-20] MEDS: risperiDONE 1 MG TABLET PO SCH ×3 (08:23→20:12)
[2020-11-20] MEDS: DIVALPROEX 250 MG TABLET.DR PO SCH ×3 (08:23→16:56)
[2020-11-20 14:59] VITALS: BP 119/65
--- NOTE | 2020-11-20 19:00 | NUR ---
Patient needs redirection and reinforcement at all times. Denies pain. Frequent checks done. MD made rounds. Orders endorsed to the next shift. Per Dr Ochoa he will put an order for the xray plan of Dr. Luevano. All needs attended. No distess identified. Endorsed to the next shift for continuity of carer
[2020-11-20 20:10] VITALS: BP 121/86
[2020-11-20] MEDS: HYDROCODONE/APAP 5-325MG TABLET PO PRN (20:12)
[2020-11-20] MEDS: ATORVASTATIN 10 MG TABLET PO SCH (20:12)
--- NOTE | 2020-11-20 20:15 | NUR ---
RECEIVED PATIENT AWAKE IN WHEELCHAIR IN HALLWAY. PATIENT REDIRECTED BACK TO HIS ROOM. A/O X3. C/O PAIN IN RIGHT ANKLE. SWELLING AND REDNESS NOTED TO BILATERAL FEET. PATIENT GIVEN NORCO 1 TAB PO PRN FOR PAIN. VS WNL. NO RESP. DISTRESS NOTED. H/L INTACT AND PATENT, NOTED TO LEFT FA #20 GAUGE. CALL LIGHT IN REACH. ALL NEEDS ATTENDED. WILL CONTINUE TO MONITOR AND ASSESS.
--- NOTE | 2020-11-20 23:02 | NUR ---
SPOKE WITH NURSING PUBLIC HEALTH AIDE. PATIENT WILL HAVE SURGERY FOR ORIF OF RIGHT ANKLE ON TUESDAY 0900AM. PATIENT NEEDS TO BE MEDICALLY CLEARED. DR. QUEZADA NOTIFIED. WILL CONTINUE TO MONITOR AND ASSESS. ALL NEEDS ATTENDED.
[2020-11-21] MEDS: LORAZEPAM 1 MG TABLET PO PRN ×2 (01:16→19:31)
[2020-11-21] MEDS: ACETAMINOPHEN 325 MG TABLET PO PRN ×3 (01:17→16:32)
[2020-11-21] MEDS: HYDROCODONE/APAP 5-325MG TABLET PO PRN (03:20)
[2020-11-21 04:30] VITALS: BP 112/72
[2020-11-21] MEDS: CEFAZOLIN 2 G in IV DEXTROSE 5% 100 ML IV SCH ×3 (05:16→21:41)
--- NOTE | 2020-11-21 06:44 | NUR ---
PATIENT ASLEEP IN BED. SLEPT AT INTERVALS. VSS. CALL LIGHT IN REACH. ALL NEEDS ATTENDED. WILL CONTINUE TO MONITOR AND ASSESS.
--- NOTE | 2020-11-21 08:00 | NUR ---
pt awake, wanted to go to BR using a walker but doesn't look safe,placed him on w/c and assisted to BR, pt needs redirection, emphasized that safety is our priority and not to be getting up alone, states "ok", needs attended and states has "short patience ans so wants things done immediately", informed we will do our best but we have other pts to attend too also, call zamora within reach
[2020-11-21] MEDS: risperiDONE 1 MG TABLET PO SCH ×3 (09:08→20:43)
[2020-11-21] MEDS: ASPIRIN 81 MG TAB.CHEW PO SCH (09:08)
[2020-11-21] MEDS: DIVALPROEX 250 MG TABLET.DR PO SCH ×3 (09:08→16:32)
--- NOTE | 2020-11-21 10:00 | NUR ---
wheeling himself in the hallway and been instructed not to go to other pt's room
[2020-11-21 12:00] VITALS: BP 106/73
[2020-11-21 16:00] VITALS: BP 137/77
--- NOTE | 2020-11-21 17:22 | NUR ---
no distress noted, all needs attended and met, safety measures maintained
--- NOTE | 2020-11-21 19:35 | NUR ---
PATIENT AWAKE IN W/C IN HALLWAY. PATIENT DIRECTED BACK TO ROOM. A/O X3. APPEARS ANXIOUS AND NEEDS FREQUENT REDIRECTION. PATIENT C/O ANXIETY AND STATED, "FEELING NERVOUS." VS WNL. PATIENT GIVEN ATIVAN 1MG PO PRN FOR ANXIETY. PATIENT ASSISTED BACK INTO BED. H/L INTACT AND PATENT, NOTED TO LEFT HAND. CALL LIGHT IN REACH. ALL NEEDS ATTENDED. WILL CONTINUE TO MONITOR AND ASSESS.
[2020-11-21 20:00] VITALS: BP 118/72
[2020-11-21] MEDS: ATORVASTATIN 10 MG TABLET PO SCH (20:43)
--- NOTE | 2020-11-21 23:45 | NUR ---
PATIENT AWAKE IN BED. ASKING FOR SLEEPING PILL. PATIENT GIVEN AMBIEN 10MG PO PRN FOR SLEEP. BED ALARM ON. ALL NEEDS ATTENDED.
[2020-11-21] MEDS: ZOLPIDEM 5 MG TABLET PO PRN (23:48)
--- NOTE | 2020-11-22 00:05 | NUR ---
PATIENT NPO ORDERED.
[2020-11-22 04:00] VITALS: BP 104/58
[2020-11-22] MEDS: CEFAZOLIN 2 G in IV DEXTROSE 5% 100 ML IV SCH (05:35)
[2020-11-22 05:44] LABS: HEMATOCRIT 35.3 % (36.7-47.1); MEAN CORPUSCULAR HEMOGLOBIN 30.3 uug (23.8-33.4); MEAN CORPUSCULAR VOLUME 89.7 fL (73.0-96.2); PLATELET COUNT (AUTO) 189 K/uL (152-348)
[2020-11-22 06:02] LABS: BILIRUBIN,TOTAL 0.6 mg/dL (0.2-1.0); PHOSPHOROUS 3.6 mg/dL (2.5-4.9); POTASSIUM 4.1 mmol/L (3.5-5.1); TOTAL PROTEIN, SERUM 6.7 g/dL (6.4-8.2)
--- NOTE | 2020-11-22 06:39 | NUR ---
PATIENT AWAKE. SLEPT WELL THROUGHOUT THE NIGHT. VSS. H/L INTACT AND PATENT. BED ALARM ON. CALL LIGHT IN REACH. ALL NEEDS ATTENDED, WILL CONTINUE TO MONITOR AND ASSESS.
--- NOTE | 2020-11-22 07:30 | NUR ---
Patient received in wheelchair, alert and oriented x3. Patient expresses understanding regarding procedure with Dr. Luevano this AM. Patient on room air with no SOB or difficulties breathing. No acute distress noted. Patient insists that he remain in wheelchair, but informed him he will need to be in bed before being taken to the OR and he expressed understanding. Will continue to monitor.
[2020-11-22] MEDS: risperiDONE 1 MG TABLET PO SCH ×3 (08:03→20:42)
[2020-11-22] MEDS: DIVALPROEX 250 MG TABLET.DR PO SCH ×3 (08:03→16:12)
[2020-11-22] MEDS: ASPIRIN 81 MG TAB.CHEW PO SCH (08:03)
--- NOTE | 2020-11-22 08:47 | NUR ---
Patient taken to OR for procedure with Dr. Luevano.
[2020-11-22] MEDS ORDERED: HYDROMORPHONE 2 MG/1 ML DISP.SYRIN ONE (08:52)
[2020-11-22] MEDS ORDERED: VANCOMYCIN 1000 MG VIAL ONE (09:51)
[2020-11-22] MEDS ORDERED: HYDROMORPHONE 1 MG/1 ML DISP.SYRIN ONE (12:02)
[2020-11-22] MEDS ORDERED: IV D5W-0.45% NS +20 KCL 1,000 ML IV PRN (12:15)
--- NOTE | 2020-11-22 12:40 | NUR ---
Patient brought back to floor by OR team post ORIF of right ankle with Dr. Luevano. Patient is on 2L O2 via NC at this time with no SOB or difficulties breathing. No acute distress noted. Patient has DVT pumps on the left leg. Bed alarm on and wheelchair removed from room for safety reasons. Right hand IV is patent with no redness or swelling noted. Patient complains of 10 out of 10 pain and was administered morphine as ordered. Call light within easy reach. Will continue to monitor.
[2020-11-22 12:43] VITALS: BP 131/62
[2020-11-22] MEDS: MORPHINE SULFATE 4 MG/1 ML DISP.SYRIN IV PRN ×2 (12:43→22:17)
[2020-11-22 13:07] VITALS: BP 122/78
[2020-11-22 13:15] VITALS: BP 107/73
[2020-11-22] MEDS: HYDROCODONE/APAP 10-325 MG TABLET PO PRN (13:32)
[2020-11-22 13:45] VITALS: BP 117/73
[2020-11-22] MEDS: CEFAZOLIN 1 G in IV DEXTROSE 5% 50 ML IV SCH ×2 (15:21→21:18)
[2020-11-22] MEDS: LORAZEPAM 1 MG TABLET PO PRN (16:12)
[2020-11-22] MEDS ORDERED: IV NS 1000 ML 1,000 ML IV ONE (19:45)
--- NOTE | 2020-11-22 20:11 | NUR ---
Patient awake alert and able to make needs known.S/p rt ORIF ankle with dressing intact.IV on right hand patent and intact.Patient back on cardiac diet.Snacks provided.Patient was seen by dc'd D5Ns and changed IVF to Ns at 75 ml/hr. Tolerated well.Patient able to use urinal.Voided well.Call light within reach.Will continue to monitor.VSS
[2020-11-22 20:39] VITALS: BP 120/73
[2020-11-22] MEDS: ATORVASTATIN 10 MG TABLET PO SCH (20:39)
[2020-11-22] MEDS: ZOLPIDEM 5 MG TABLET PO PRN (23:45)
[2020-11-23 04:30] VITALS: BP 105/55
[2020-11-23] MEDS: CEFAZOLIN 1 G in IV DEXTROSE 5% 50 ML IV SCH (05:24)
--- NOTE | 2020-11-23 07:43 | NUR ---
Received awake and responsive. No resp distress. spo2 95% on 1.5lpm nc. Denies pain.Iv intact and running. Safety measures in place. kept comfortable. Call light in reach.
[2020-11-23] MEDS: DIVALPROEX 250 MG TABLET.DR PO SCH ×3 (08:26→17:45)
[2020-11-23] MEDS: ASPIRIN 81 MG TAB.CHEW PO SCH (08:26)
[2020-11-23] MEDS: risperiDONE 1 MG TABLET PO SCH ×3 (08:27→20:02)
[2020-11-23] MEDS: HYDROCODONE/APAP 10-325 MG TABLET PO PRN (11:14)
[2020-11-23 12:00] VITALS: BP 138/68
--- NOTE | 2020-11-23 12:19 | NUR ---
PT eval done today. patient tolerated.
[2020-11-23] MEDS ORDERED: KETOROLAC TROMETHAMINE 30 MG INJ IM ONE (14:16)
[2020-11-23] MEDS ORDERED: SEVOFLURANE 250 ML BOTTLE IH ONE (14:16)
[2020-11-23] MEDS ORDERED: PROPOFOL 200 MG/20 ML BOTTLE IV ONE (14:16)
[2020-11-23] MEDS ORDERED: ONDANSETRON 4 MG/2 ML VIAL IV ONE (14:16)
[2020-11-23] MEDS ORDERED: LIDOCAINE-MPF 2% 5 ML VIAL MC ONE (14:16)
[2020-11-23] MEDS ORDERED: DEXAMETHASONE SOD PHOSPHATE 4 MG INJ IV ONE (14:16)
[2020-11-23 16:34] VITALS: BP 104/53
[2020-11-23] MEDS: ACETAMINOPHEN 325 MG TABLET PO PRN (17:46)
--- NOTE | 2020-11-23 19:05 | NUR ---
awake and responsive. no acute distress. denies pain at this time. iv intact and fluids ongoing. s/p right ankle orif dressing intact. pt kept comfortable. safety measures maintained. needs attended. call light in reach.
[2020-11-23] MEDS: ATORVASTATIN 10 MG TABLET PO SCH (20:02)
[2020-11-23 20:21] VITALS: BP 146/79
[2020-11-23] MEDS: ZOLPIDEM 5 MG TABLET PO PRN (22:19)
[2020-11-23] MEDS: LORAZEPAM 1 MG TABLET PO PRN (22:19)
[2020-11-24 04:18] VITALS: BP 130/84
[2020-11-24 06:24] LABS: MEAN CORPUSCULAR HEMOGLOBIN 30.6 uug (23.8-33.4); MEAN CORPUSCULAR VOLUME 90.2 fL (73.0-96.2); PLATELET COUNT (AUTO) 300 K/uL (152-348)
[2020-11-24 06:40] LABS: CREATININE 1.1 mg/dL (0.6-1.3); PHOSPHOROUS 3.1 mg/dL (2.5-4.9); POTASSIUM 4.1 mmol/L (3.5-5.1)
--- NOTE | 2020-11-24 07:30 | NUR ---
Patient received resting in bed, on room air. No S&S of acute distress noted. Alert and oriented. No c/o pain. 20g hep-lock on right hand. No S&S of infection noted. Bed locked and at lowest position. Call light within reach. Will continue to monitor.
[2020-11-24] MEDS: ASPIRIN 81 MG TAB.CHEW PO SCH (09:27)
[2020-11-24] MEDS: DIVALPROEX 250 MG TABLET.DR PO SCH ×3 (09:27→17:14)
[2020-11-24] MEDS: risperiDONE 1 MG TABLET PO SCH ×3 (09:27→21:24)
[2020-11-24] MEDS: ACETAMINOPHEN 325 MG TABLET PO PRN ×2 (11:16→17:17)
[2020-11-24 12:00] VITALS: BP 125/66
[2020-11-24] MEDS ORDERED: RISP1TAB7 PO ×2 (13:38)
[2020-11-24] MEDS ORDERED: SENN-18 PO (13:38)
[2020-11-24] MEDS ORDERED: HYDR-3980 PO (13:38)
[2020-11-24] MEDS ORDERED: ATOR10TA PO (13:38)
[2020-11-24] MEDS ORDERED: HYDR-894 PO (13:38)
[2020-11-24] MEDS ORDERED: ACET325T53 PO (13:38)
[2020-11-24] MEDS ORDERED: MULT-594 PO (13:38)
[2020-11-24 16:42] VITALS: BP 130/84
[2020-11-24] MEDS: LORAZEPAM 1 MG TABLET PO PRN (18:42)
--- NOTE | 2020-11-24 19:25 | NUR ---
received pt ambulating in the room;; pt removed his left foot surgical dressing; non compliant with care; pt asked to sit and changed dressing; educated pt regarding compliance with care; will closely monitor.
[2020-11-24 20:51] VITALS: BP 103/76
[2020-11-24] MEDS: HYDROCODONE/APAP 10-325 MG TABLET PO PRN (21:21)
[2020-11-24] MEDS: ATORVASTATIN 10 MG TABLET PO SCH (21:24)
[2020-11-25 04:38] VITALS: BP 107/69
[2020-11-25] MEDS: DIVALPROEX 250 MG TABLET.DR PO SCH (08:23)
[2020-11-25] MEDS: ASPIRIN 81 MG TAB.CHEW PO SCH (08:23)
[2020-11-25] MEDS: risperiDONE 1 MG TABLET PO SCH (08:23)
--- NOTE | 2020-11-25 09:45 | NUR ---
Discharged patient to [facility]. AOx3. On room air. No signs of acute distress. Vital signs WNL. IV access removed. ID armband removed. Discharge instructions given to patient and discharge documents signed. Noted with dry blood on open hard cast on right sole. Blood looks dry. Contacted Dr. Luevano to inquire if dressing should be reinforced/ changed. Dr. Luevano said no. Patient to follow up with Dr. Luevano in 3 days, informed facility. Nursing report given to Shala of [facility].
== END 2020-11-25 09:35 | DRG 493 ==
LOC: MEDSURG3 01:06
PROVIDERS: ADMIT Internal Medicine; ATTEND Internal Medicine
PROC: 0QSJ04Z Reposition Right Fibula with Internal Fixation Device, Open Approach (ICD-10-PCS; principal; 2020-11-22)
PROC: 0QSG04Z Reposition Right Tibia with Internal Fixation Device, Open Approach (ICD-10-PCS; principal; 2020-11-22)
PROC: 0Q8 Lower Bones, Division (ICD-10-PCS; principal; 2020-11-22)
DX: S82.841A Displaced bimalleolar fracture of right lower leg, initial encounter for closed fracture (principal); E87.1 Hypo-osmolality and hyponatremia; D68.59 Other primary thrombophilia; L03.115 Cellulitis of right lower limb; L03.116 Cellulitis of left lower limb; E78.5 Hyperlipidemia, unspecified; F25.9 Schizoaffective disorder, unspecified; E87.79 Other fluid overload; I25.10 Atherosclerotic heart disease of native coronary artery without angina pectoris; B35.1 Tinea unguium; E86.1 Hypovolemia; I11.9 Hypertensive heart disease without heart failure; F25.0 Schizoaffective disorder, bipolar type; I25.5 Ischemic cardiomyopathy; I25.2 Old myocardial infarction; I87.2 Venous insufficiency (chronic) (peripheral); R73.03 Prediabetes; Z20.822 Contact with and (suspected) exposure to COVID-19
CPT/HCPCS: 36415; 70030-TC; 73600; 73610; 80164; 83735; 83930; 84100; 84300; 85025; 85610; 87040; 93307; 97161; A4649; A4663; C1713; G0378; J0690; J1100; J1170; J1885; J2270; J2405; J3370; J3490; J7030; J7040; J7060

== ENCOUNTER 2020-12-11 19:16 | Inpatient (IN) | payer MEDICARE, OTHER ==
[~2020-12-11] VITALS: Ht 172.7 cm; Wt 81.6 kg
[~2020-12-11 19:16] MED LIST changes: -ACET-73 PO; +ACET325T53 PO; +ATOR10TA PO; -ATOR40TA PO; +HYDR-3980 PO; +HYDR-894 PO; +LORA-259 PO; +MAGN400O6 PO; +MULT-594 PO; -POLY17PO4 PO; +RISP1TAB7 PO; +SENN-18 PO; -SENN-261 PO; +ZOLP10TA2 PO
--- NOTE | 2020-12-11 19:20 | NUR ---
PATIENT BIB [facility], SURGICAL SITE EVAL. ON RIGHT ANKLE ORIF WHICH WAS DONE ON 11/22/20 AND NOTICE METAL WAS EXPOSED.
--- NOTE | 2020-12-11 19:42 | NUR ---
Dr. Beck at bedside for MSE.
--- NOTE | 2020-12-11 20:38 | NUR ---
Right ankle open wound cleanse with saline, pat dry and cover with dry dressing, warp with kerlix per Dr. Beck's order.
[2020-12-11 20:56] LABS: MEAN CORPUSCULAR HEMOGLOBIN 30.7 uug (23.8-33.4); MEAN CORPUSCULAR VOLUME 88.5 fL (73.0-96.2); PLATELET COUNT (AUTO) 376 K/uL (152-348)
[2020-12-11] MEDS ORDERED: OXYCODONE/APAP 5-325 MG TABLET PO ONE (21:00)
[2020-12-11 21:01] LABS: *BILIRUBIN,URIN NEGATIVE (NEGATIVE); *BLOOD, URINE NEGATIVE (NEGATIVE); *CLARITY,URINE CLEAR (CLEAR); *COLOR,URINE YELLOW (YELLOW); *KETONES,URINE NEGATIVE (NEGATIVE); *UROBILINOGEN,URINE 0.2 E.U./dl (NORMAL); LEUKOCYTE ESTERASE ,URINE NEGATIVE (NEGATIVE); NITRITE, URINE NEGATIVE (NEGATIVE); UGLUCOSE NEGATIVE (NEGATIVE)
[2020-12-11 21:06] LABS: POTASSIUM 3.9 mmol/L (3.5-5.1)
[2020-12-11] MEDS ORDERED: OXYCODONE/APAP 5-325 MG TABLET ONE (21:07)
--- NOTE | 2020-12-11 21:30 | NUR ---
Epic panel call placed, spoke to Gloria, stated she will get a hold of Dr Kwok for admitting.
[2020-12-11] MEDS ORDERED: FURO-152 PO (21:54)
[2020-12-11] MEDS ORDERED: DOCU100C36 PO (21:54)
[2020-12-11] MEDS ORDERED: BISA10SU61 RC (21:54)
[2020-12-11] MEDS ORDERED: CHOL10005 PO (21:54)
[2020-12-11] MEDS ORDERED: NA P133E RC (21:54)
[2020-12-11] MEDS ORDERED: CRAN400T3 PO (21:54)
--- NOTE | 2020-12-11 21:55 | NUR ---
Dr. Beck on panel call with Dr. Kwok.
--- NOTE | 2020-12-11 22:00 | NUR ---
DR. DUDLEY (ORTHO)OFFICE CALLED AND PAGED. WAITING HEALTH AND SAFETY INSTRUCTOR BACK.
--- NOTE | 2020-12-11 22:30 | NUR ---
Patient urinated 400ml in the urinal.
--- NOTE | 2020-12-11 22:34 | NUR ---
REPAGED DR. DUDLEY.
--- NOTE | 2020-12-11 22:37 | NUR ---
DR. DORADO ON THE PHONE WITH DR. DUDLEY.
--- NOTE | 2020-12-11 22:40 | NUR ---
Dr Beck on panel call with Dr. Kwok. Patient accepted for admission to MS unit, Dx of Wound Dehiscence.
[2020-12-11] MEDS ORDERED: diphenhydrAMINE 50 MG CAPSULE PO PRN (23:15)
[2020-12-11] MEDS ORDERED: MAGNESIUM HYDROXIDE 30 ML LIQUID UDC PO SCH (23:15)
[2020-12-11] MEDS ORDERED: BISACODYL 10 MG SUPP.RECT RC PRN (23:15)
[2020-12-11] MEDS ORDERED: FLEET ENEMA 133 ML BOTTLE RC PRN (23:15)
--- NOTE | 2020-12-11 23:40 | NUR ---
Patient complain of pain on left LE, stated pain is 10/[address] pain[address] Beck made aware and ordered Dilaudid 1mg IV. Will carry out order.
[2020-12-11] MEDS ORDERED: HYDROMORPHONE 1 MG/1 ML DISP.SYRIN IV ONE (23:45)
[2020-12-11] MEDS ORDERED: ONDANSETRON 4 MG/2 ML VIAL IV ONE (23:45)
[2020-12-11] MEDS ORDERED: HYDROMORPHONE 1 MG/1 ML DISP.SYRIN ONE ×2 (23:53→23:56)
[2020-12-11] MEDS ORDERED: ONDANSETRON 4 MG/2 ML VIAL ONE (23:54)
--- NOTE | 2020-12-12 04:40 | NUR ---
Pt. admitted to MS unit, Room 317, under care of Dr. Kwok. Report given to BAN Gabriel. Belongs List completed.
--- NOTE | 2020-12-12 06:16 | NUR ---
Admitted patient to med-surg from ER via [facility].Dx of wound dehiscence on Rt ankle.Patient alert x4.Denies pain at this time. No s/s of distress. On Ra.Able to ambulates using cane.Assisted patient to bathroom ,voided well. Edema noted on bilateral lower ext. RT ankle noted with dressing intact. Assessment done.Bilateral lower legs elevated with pillow. Iv on Right hand patent and intact.Call light with in reach.
[2020-12-12 06:27] VITALS: BP 112/70
--- NOTE | 2020-12-12 08:08 | NUR ---
Alert, oriented x 4. NPO. Seen and examined by Dr. Kwok, discussed plan of care.
[2020-12-12] MEDS ORDERED: CRANBERRY FRUIT PO SCH (09:00)
--- NOTE | 2020-12-12 10:00 | NUR ---
Spoke with Dr. Luevano, followed with ortho consult, will see patient
[2020-12-12] MEDS: FUROSEMIDE 20 MG TABLET PO SCH (10:33)
[2020-12-12] MEDS: DIVALPROEX 250 MG TABLET.DR PO SCH ×3 (10:33→18:17)
--- NOTE | 2020-12-12 10:59 | NUR ---
WOUND CARE CONSULT: PT SEEN FOR SKIN ASSESSMENT AND NOTED TO HAVE DRESSING TO RT ANKLE (DRY AND INTACT) WITH SURGICAL WOUND AND HARDWARE EXPOSURE, LEFT LOWER LEG REDNESS AND SOME REDNESS TO BILATERAL GROIN FOLDS, PRESENT ON ADMISSION. DEFER TO ORTHO FOR RT ANKLE SURGICAL WOUND. RECOMMENDATIONS MADE FOR SKIN PROTECTION AND CARE OF GROIN REDNESS. DISCUSSED WITH NURSING STAFF. DEFER TO PMD FOR LEFT LOWER LEG REDNESS. MD IN AGREEMENT WITH PLAN OF CARE.
[2020-12-12 11:10] VITALS: BP 144/69
[2020-12-12] MEDS ORDERED: Z GUARD REMEDY PASTE 57 GM TUBE TOP PRN (11:15)
--- NOTE | 2020-12-12 14:15 | NUR ---
Dr. Luevano seen and examined patient. Right foot dressing changed as ordered. RLE NWB re enforced, elevated over pillow. No surgery today. Diet resumed.
[2020-12-12 16:04] VITALS: BP 122/77
[2020-12-12] MEDS: CLOTRIMAZOLE 1% CREAM 30 GM TUBE TOP SCH (18:18)
--- NOTE | 2020-12-12 18:43 | NUR ---
Eating fairly. Calm and compliant with care and taking of medications
--- NOTE | 2020-12-12 20:00 | NUR ---
NSG: Received Patient lying in bed. patient alert x3. Denies pain at this time. No s/s of distress. uses urinal. urinal kept near patient. Edema noted on bilateral lower ext. RT ankle noted with dressing intact. Assessment done. Bilateral lower legs elevated with pillow. Iv on Right hand patent and intact. Call light with in reach.
[2020-12-12 20:28] VITALS: BP 115/71
[2020-12-12] MEDS: CHOLECALCIFEROL 1,000 UNIT TABLET PO SCH (20:47)
[2020-12-12] MEDS: DOCUSATE SODIUM 100 MG CAPSULE PO SCH (20:47)
[2020-12-12] MEDS: ATORVASTATIN 10 MG TABLET PO SCH (20:47)
[2020-12-12] MEDS: SENNOSIDES 1 TABLET PO SCH (20:47)
[2020-12-12] MEDS: risperiDONE 1 MG TABLET PO SCH (20:47)
[2020-12-12] MEDS: ZOLPIDEM 5 MG TABLET PO PRN (22:56)
--- NOTE | 2020-12-12 23:58 | NUR ---
NSG: Resting quitley. no s/s of pain or discomfort noted at this time.
[2020-12-13 04:22] VITALS: BP 117/77
--- NOTE | 2020-12-13 05:13 | NUR ---
NSG: Remain calm and cooperative. compliant with meds. ambien po given for sleep. patient slept well. kept clean and dry. denies pain and discomfort at this time.call light w/in reach.
--- NOTE | 2020-12-13 07:30 | NUR ---
Received patient alert/orientedx 2, verbalized nonsensical, noted with heplock to the right hand, intact. Kept call light within reach. Will continue to monitor.
--- NOTE | 2020-12-13 07:59 | NUR ---
Dr Kwok ordered psych consult r/t depression. Dr Mcdaniels on deck today, faxed facesheet to [facility].
[2020-12-13 08:30] VITALS: BP 137/80
[2020-12-13] MEDS: FUROSEMIDE 20 MG TABLET PO SCH (08:57)
[2020-12-13] MEDS: CLOTRIMAZOLE 1% CREAM 30 GM TUBE TOP SCH ×2 (08:57→16:09)
[2020-12-13] MEDS: DIVALPROEX 250 MG TABLET.DR PO SCH ×3 (08:57→16:08)
[2020-12-13 11:32] VITALS: BP 112/72
[2020-12-13] MEDS: HYDROCODONE/APAP 10-325 MG TABLET PO PRN (16:09)
--- NOTE | 2020-12-13 16:38 | NUR ---
Wound care and dressing changed. Noted with wound dehiscence to the right foot, no bleeding identified. Administered PRN pain medication as ordered. Tolerated the wound care well.
--- NOTE | 2020-12-13 19:07 | NUR ---
No distress identified during the shift. Will endorse to the next shift for continuity of care.
[2020-12-13 20:00] VITALS: BP 113/63
[2020-12-13] MEDS: CHOLECALCIFEROL 1,000 UNIT TABLET PO SCH (20:12)
[2020-12-13] MEDS: SENNOSIDES 1 TABLET PO SCH (20:12)
[2020-12-13] MEDS: DOCUSATE SODIUM 100 MG CAPSULE PO SCH (20:12)
[2020-12-13] MEDS: ATORVASTATIN 10 MG TABLET PO SCH (20:12)
[2020-12-13] MEDS: risperiDONE 1 MG TABLET PO SCH (20:12)
[2020-12-13] MEDS: ZOLPIDEM 5 MG TABLET PO PRN (23:27)
--- NOTE | 2020-12-14 00:32 | NUR ---
NSG: Resting quitley. no s/s of pain or discomfort noted at this time.
[2020-12-14 04:29] VITALS: BP 144/79
[2020-12-14 06:54] LABS: HEMATOCRIT 32.9 % (36.7-47.1); MEAN CORPUSCULAR HEMOGLOBIN 30.2 uug (23.8-33.4); MEAN CORPUSCULAR VOLUME 89.4 fL (73.0-96.2); PLATELET COUNT (AUTO) 325 K/uL (152-348)
[2020-12-14] MEDS: FUROSEMIDE 20 MG TABLET PO SCH (08:13)
[2020-12-14] MEDS: DIVALPROEX 250 MG TABLET.DR PO SCH ×3 (08:13→16:54)
[2020-12-14] MEDS: CLOTRIMAZOLE 1% CREAM 30 GM TUBE TOP SCH ×2 (08:14→16:54)
[2020-12-14] MEDS: MUPIROCIN 2% OINT 22 GM TUBE NS SCH ×2 (10:00→20:12)
[2020-12-14 11:02] VITALS: BP 107/66
[2020-12-14] MEDS: HYDROCODONE/APAP 10-325 MG TABLET PO PRN ×3 (14:24→23:01)
[2020-12-14 15:33] VITALS: BP 135/92
--- NOTE | 2020-12-14 17:17 | NUR ---
RECEIVED A CALL FROM PT WILL BE NPO AFTER MN CONSENT SIGNED.
[2020-12-14 20:00] VITALS: BP 120/75
[2020-12-14] MEDS: risperiDONE 1 MG TABLET PO SCH (20:00)
[2020-12-14] MEDS: ATORVASTATIN 10 MG TABLET PO SCH (20:00)
[2020-12-14] MEDS: DOCUSATE SODIUM 100 MG CAPSULE PO SCH (20:00)
[2020-12-14] MEDS: SENNOSIDES 1 TABLET PO SCH (20:00)
[2020-12-14] MEDS: CHOLECALCIFEROL 1,000 UNIT TABLET PO SCH (20:00)
[2020-12-15] VITALS (7 sets, daily range): BP systolic 105–151; BP diastolic 63–89
--- NOTE | 2020-12-15 07:20 | NUR ---
Patient transported to OR. No signs of acute distress.
[2020-12-15] MEDS ORDERED: TRIAMCINOLONE ACETONIDE 40 MG/1 ML VIAL ONE (07:56)
[2020-12-15] MEDS ORDERED: BUPIVACAINE 0.25% 30 ML VIAL ONE (07:57)
[2020-12-15] MEDS ORDERED: VANCOMYCIN 1000 MG VIAL ONE (07:59)
[2020-12-15] MEDS ORDERED: ROCURONIUM BROMIDE 50 MG/5 ML VIAL ONE (08:23)
[2020-12-15] MEDS ORDERED: FENTANYL CITRATE 100 MCG/2 ML AMPUL ONE ×2 (08:23→10:19)
[2020-12-15] MEDS ORDERED: MIDAZOLAM HCL 2 MG/2 ML VIAL ONE (08:52)
[2020-12-15] MEDS ORDERED: DESFLURANE ANESTHESIA GAS 240 ML BOTTLE ONE (08:53)
[2020-12-15] MEDS: FUROSEMIDE 20 MG TABLET PO SCH (09:00)
[2020-12-15] MEDS: DIVALPROEX 250 MG TABLET.DR PO SCH ×3 (09:00→16:16)
[2020-12-15] MEDS: CLOTRIMAZOLE 1% CREAM 30 GM TUBE TOP SCH ×2 (09:41→17:24)
[2020-12-15] MEDS: MUPIROCIN 2% OINT 22 GM TUBE NS SCH ×2 (09:42→20:47)
[2020-12-15] MEDS ORDERED: EPHEDRINE SULFATE 50 MG/ML AMPUL IM ONE (12:05)
[2020-12-15] MEDS ORDERED: PROPOFOL 200 MG/20 ML BOTTLE IV ONE (12:05)
[2020-12-15] MEDS ORDERED: KETOROLAC TROMETHAMINE 30 MG INJ IM ONE (12:05)
[2020-12-15] MEDS ORDERED: CEFAZOLIN 1 G VIAL IM ONE (12:05)
[2020-12-15] MEDS ORDERED: SEVOFLURANE 250 ML BOTTLE IH ONE (12:05)
[2020-12-15] MEDS ORDERED: IV D5W-0.45% NS +20 KCL 1,000 ML IV ONE (12:32)
--- NOTE | 2020-12-15 13:25 | NUR ---
Received patient from OR. On room air. No signs of acute distress. Vital signs WNL. Will continue to monitor.
[2020-12-15] MEDS ORDERED: IV D5W-0.45% NS +20 KCL 1,000 ML IV SCH (13:30)
[2020-12-15] MEDS: MORPHINE SULFATE 2 MG/1 ML DISP.SYRIN IV PRN ×2 (16:12→19:25)
[2020-12-15] MEDS: CEFAZOLIN 1 G in IV DEXTROSE 5% 50 ML IV SCH (16:16)
--- NOTE | 2020-12-15 18:10 | NUR ---
Bleeding noted at surgical site. Dressing reinforced with 4x4 gauze and gauze saturated. Capillary refill at distal right foot WNL. Able to wiggle toes and patient able to feel sensation. Attempted to notify Dr. Luevano. Awaiting response. Will continue to monitor.
--- NOTE | 2020-12-15 18:38 | NUR ---
Patient resting in bed. AOx3. On room air. No signs of acute distress. With dressing on right ankle. Patient complained of pain, Morphine PRN given. Patient stated relief. Compliant with medications and care. Patient tolerated regular diet. Patient denies nausea/ vomiting. Call light within reach. Bed alarm on. Will endorse to incoming shift for continuity of care.
--- NOTE | 2020-12-15 20:00 | NUR ---
RECEIVED PATIENT AWAKE IN BED. PATIENT WAS JUST MEDICATED FOR PAIN PER DAYSHIFT RN. PATIENT STATED, PAIN IS SUBSIDING. TEMPERATRE NOTED, 100.2, COOLING MEASURES APPLIED. WILL CONTINUE TO MONITOR AND ASSESS. DRESSING NOTED TO RIGHT LE. MODERATE AMOUNT OF BLOOD NOTED TO OUTSIDE OF DRESSING NOTED TO RLE. NEURO-VASCULAR CHECKS WNL, SENSATION PRESENT. CALL LIGHT IN REACH. ALL NEEDS ATTENDED. WILL CONTINUE TO MONITOR AND ASSESS.
[2020-12-15] MEDS: IV D5W-0.45% NS +20 KCL 1,000 ML IV PRN (20:21)
[2020-12-15] MEDS: DOCUSATE SODIUM 100 MG CAPSULE PO SCH (20:38)
[2020-12-15] MEDS: SENNOSIDES 1 TABLET PO SCH (20:38)
[2020-12-15] MEDS: CHOLECALCIFEROL 1,000 UNIT TABLET PO SCH (20:38)
[2020-12-15] MEDS: risperiDONE 1 MG TABLET PO SCH (20:38)
[2020-12-15] MEDS: ATORVASTATIN 10 MG TABLET PO SCH (20:38)
[2020-12-16] MEDS: CEFAZOLIN 1 G in IV DEXTROSE 5% 50 ML IV SCH (00:56)
[2020-12-16 04:20] VITALS: BP 108/63
--- NOTE | 2020-12-16 04:32 | NUR ---
PATIENT AWAKE IN BED. SLEPT WELL THROUGHOUT THE NIGHT. TEMPERATURE 101.[address] OUT TO DR. HERNANDEZ FOR FURTHER ORDERS. ALL OTHER VS WNL. NO C/O PAIN AT THIS TIME. NO RESP. DISTRESS NOTED. NEURO-VASCULAR CHECKS WNL. SENSATION PRESENT. IVF INFUSING WELL TO RIGHT HAND. CALL LIGHT IN REACH. ALL NEEDS ATTENDED. WILL CONTINUE TO MONITOR AND ASSESS.
[2020-12-16] MEDS ORDERED: ACETAMINOPHEN 325 MG TABLET PO PRN (04:45)
--- NOTE | 2020-12-16 05:04 | NUR ---
BLEEDING NOTED THROUGH DRESSING. REINFORCED. WILL CONTINUE TO MONITOR AND ASSESS.
[2020-12-16 06:52] LABS: *BILIRUBIN,URIN NEGATIVE (NEGATIVE); *BLOOD, URINE 1+ (NEGATIVE); *CLARITY,URINE CLEAR (CLEAR); *COLOR,URINE YELLOW (YELLOW); *KETONES,URINE NEGATIVE (NEGATIVE); *UROBILINOGEN,URINE 0.2 E.U./dl (NORMAL); LEUKOCYTE ESTERASE ,URINE NEGATIVE (NEGATIVE); NITRITE, URINE NEGATIVE (NEGATIVE); UGLUCOSE NEGATIVE (NEGATIVE)
--- NOTE | 2020-12-16 07:30 | NUR ---
received asleep but arousable. no resp distress on 2 lpm nc. no sob noted. no s/sx of pain. iv intact with fluids ongoing. dressing on right foot reinforced d/t bleeding earlier. no bleeding at this time. skin warm to touch, a little swelling but pt able to move his toes. foot is elevated. kept comfortable. call light in reach. safety measures in place.
[2020-12-16] MEDS: DIVALPROEX 250 MG TABLET.DR PO SCH ×3 (09:28→16:52)
[2020-12-16] MEDS: MUPIROCIN 2% OINT 22 GM TUBE NS SCH ×2 (09:29→20:01)
[2020-12-16] MEDS: FUROSEMIDE 20 MG TABLET PO SCH (09:29)
[2020-12-16] MEDS: CLOTRIMAZOLE 1% CREAM 30 GM TUBE TOP SCH ×2 (09:29→16:52)
[2020-12-16] MEDS: HYDROCODONE/APAP 10-325 MG TABLET PO PRN ×3 (10:35→20:58)
[2020-12-16] MEDS: IV D5W-0.45% NS +20 KCL 1,000 ML IV PRN (11:02)
[2020-12-16 12:00] VITALS: BP 110/73
[2020-12-16] MEDS: PROTEIN SUPPLEMENT (PROSTAT) 30 ML LIQUID PO SCH (14:09)
[2020-12-16 15:20] LABS: BACTERIA,URINE NONE SEEN /HPF (NONE SEEN); SQUAMOUS EPITHELIAL CELL,UR FEW /HPF (NONE SEEN); URINE AMORPHOUS PHOSPHATES FEW /HPF; WBC,URINE 0-3 /HPF (0-3)
[2020-12-16 16:00] VITALS: BP 109/68
[2020-12-16] MEDS ORDERED: CEphaleXIN 500 MG CAPSULE PO SCH (17:40)
--- NOTE | 2020-12-16 18:59 | NUR ---
no acute distress. on 2lpm nc. no sob. no bleeding on right foot dressing. foot kept elevated. iv fluids ongoing and tolerated. safety measures kept in place.
[2020-12-16] MEDS: SENNOSIDES 1 TABLET PO SCH (20:00)
[2020-12-16] MEDS: DOCUSATE SODIUM 100 MG CAPSULE PO SCH (20:00)
[2020-12-16] MEDS: ATORVASTATIN 10 MG TABLET PO SCH (20:00)
[2020-12-16] MEDS: risperiDONE 1 MG TABLET PO SCH (20:00)
[2020-12-16] MEDS: CHOLECALCIFEROL 1,000 UNIT TABLET PO SCH (20:00)
[2020-12-16 20:09] VITALS: BP 105/63
[2020-12-17] MEDS: IV D5W-0.45% NS +20 KCL 1,000 ML IV PRN ×2 (00:17→13:36)
[2020-12-17 04:33] VITALS: BP 110/71
--- NOTE | 2020-12-17 05:22 | NUR ---
Patient slept intermittently throughout the night. C/o some pain in right lower extremity which is controlled by Brenton. Noted some serosanguineous drainage from wound, dressing changed and picture updated in chart. IV site intact. Safety and comfort provided. No other issues or concerns at this time, will endorse to day shift. Addendum: 12/17/20 at 0630 by PATIENCE MARTINEZ RN Dressing unable to be changed due to cast around leg. Kerlix reenforced around ankle. No picture taken because no wound can be exposed at this time.
[2020-12-17 05:58] LABS: MEAN CORPUSCULAR HEMOGLOBIN 29.5 uug (23.8-33.4); MEAN CORPUSCULAR VOLUME 89.5 fL (73.0-96.2); PLATELET COUNT (AUTO) 276 K/uL (152-348)
[2020-12-17] MEDS: HYDROCODONE/APAP 10-325 MG TABLET PO PRN (06:00)
[2020-12-17] MEDS ORDERED: CEphaleXIN 500 MG CAPSULE PO SCH (06:00)
[2020-12-17 06:17] LABS: BILIRUBIN,TOTAL 0.5 mg/dL (0.2-1.0); CREATININE 0.9 mg/dL (0.6-1.3); MAGNESIUM 2.1 mg/dL (1.8-2.4); PHOSPHOROUS 2.6 mg/dL (2.5-4.9); POTASSIUM 4.3 mmol/L (3.5-5.1); TOTAL PROTEIN, SERUM 7.2 g/dL (6.4-8.2)
--- NOTE | 2020-12-17 08:00 | NUR ---
pt in bed, on room air, no signs of distress, no reports of pain at this time. pt has urinal at bedside, pt cooperative, call light within reach, bed low and locked, will continue to monitor.
[2020-12-17] MEDS: FUROSEMIDE 20 MG TABLET PO SCH (08:28)
[2020-12-17] MEDS: DIVALPROEX 250 MG TABLET.DR PO SCH ×3 (08:28→16:30)
[2020-12-17] MEDS: PROTEIN SUPPLEMENT (PROSTAT) 30 ML LIQUID PO SCH (08:29)
[2020-12-17] MEDS: CLOTRIMAZOLE 1% CREAM 30 GM TUBE TOP SCH ×2 (08:29→16:32)
[2020-12-17] MEDS: MUPIROCIN 2% OINT 22 GM TUBE NS SCH ×2 (08:33→20:38)
[2020-12-17] MEDS: MORPHINE SULFATE 4 MG/1 ML DISP.SYRIN IV PRN ×4 (10:54→20:28)
[2020-12-17 11:33] VITALS: BP 108/70
[2020-12-17] MEDS: MEROPENEM 1 G in IV NORMAL SALINE 100 ML IV SCH ×2 (14:48→21:19)
[2020-12-17 15:27] VITALS: BP 128/66
[2020-12-17] MEDS: VANCOMYCIN IV 1,000 MG in IV DEXTROSE 5% 250 ML IV SCH (16:01)
[2020-12-17 20:28] VITALS: BP 101/66
[2020-12-17] MEDS: risperiDONE 1 MG TABLET PO SCH (20:28)
[2020-12-17] MEDS: DOCUSATE SODIUM 100 MG CAPSULE PO SCH (20:28)
[2020-12-17] MEDS: SENNOSIDES 1 TABLET PO SCH (20:28)
[2020-12-17] MEDS: ATORVASTATIN 10 MG TABLET PO SCH (20:28)
[2020-12-17] MEDS: CHOLECALCIFEROL 1,000 UNIT TABLET PO SCH (20:28)
[2020-12-18] MEDS: VANCOMYCIN IV 1,000 MG in IV DEXTROSE 5% 250 ML IV SCH ×2 (02:23→15:18)
[2020-12-18] MEDS: MORPHINE SULFATE 4 MG/1 ML DISP.SYRIN IV PRN ×4 (03:13→19:02)
[2020-12-18 04:30] VITALS: BP 94/61
[2020-12-18] MEDS: MEROPENEM 1 G in IV NORMAL SALINE 100 ML IV SCH ×2 (05:23→13:10)
[2020-12-18] MEDS: IV D5W-0.45% NS +20 KCL 1,000 ML IV PRN (06:18)
[2020-12-18 06:48] LABS: CREATININE 1.1 mg/dL (0.6-1.3); POTASSIUM 4.2 mmol/L (3.5-5.1)
[2020-12-18] MEDS: DIVALPROEX 250 MG TABLET.DR PO SCH ×3 (08:38→17:34)
[2020-12-18] MEDS: FUROSEMIDE 20 MG TABLET PO SCH (08:39)
[2020-12-18] MEDS: PROTEIN SUPPLEMENT (PROSTAT) 30 ML LIQUID PO SCH (08:39)
[2020-12-18] MEDS: MUPIROCIN 2% OINT 22 GM TUBE NS SCH ×2 (08:39→20:42)
[2020-12-18] MEDS: CLOTRIMAZOLE 1% CREAM 30 GM TUBE TOP SCH ×2 (08:39→17:37)
[2020-12-18 12:00] VITALS: BP 104/69
[2020-12-18 15:52] VITALS: BP 99/56
[2020-12-18] MEDS ORDERED: MERO1VIA23 IV (18:39)
[2020-12-18] MEDS ORDERED: MUPI22OI2 NS (18:39)
[2020-12-18] MEDS ORDERED: CLOT30CR24 TOP (18:39)
[2020-12-18] MEDS ORDERED: ACID1TAB4 PO (18:39)
[2020-12-18] MEDS ORDERED: RXVAN XX (18:39)
--- NOTE | 2020-12-18 20:25 | NUR ---
Patient in bed alert and able to make needs known.Denies SOB .Picc line on right upper arm with IV ATb still running .All due meds given. Dressing intact on right lower leg.Report given to Rhiannon /RN of [facility] .All discharged instruction given to patient and all belongings given and signed .Patient picked up by [facility] to transport patient to [facility] in stable condition.VSS
[2020-12-18] MEDS: CHOLECALCIFEROL 1,000 UNIT TABLET PO SCH (20:38)
[2020-12-18] MEDS: SENNOSIDES 1 TABLET PO SCH (20:38)
[2020-12-18] MEDS: risperiDONE 1 MG TABLET PO SCH (20:38)
[2020-12-18] MEDS: ATORVASTATIN 10 MG TABLET PO SCH (20:38)
[2020-12-18] MEDS: DOCUSATE SODIUM 100 MG CAPSULE PO SCH (20:38)
== END 2020-12-18 21:20 | DRG 493 ==
LOC: ER 19:19 → UNDOADMIN 23:55 → MEDSURG3 23:55
PROVIDERS: ADMIT Internal Medicine; ATTEND Internal Medicine
PROC: 0QPJ04Z Removal of Internal Fixation Device from Right Fibula, Open Approach (ICD-10-PCS; principal; 2020-12-15)
PROC: 0QPG04Z Removal of Internal Fixation Device from Right Tibia, Open Approach (ICD-10-PCS; 2020-12-15)
PROC: 0SGF04Z Fusion of Right Ankle Joint with Internal Fixation Device, Open Approach (ICD-10-PCS; 2020-12-15)
PROC: 02HV33Z Insertion of Infusion Device into Superior Vena Cava, Percutaneous Approach (ICD-10-PCS; 2020-12-18)
PROC: B548ZZA Ultrasonography of Superior Vena Cava, Guidance (ICD-10-PCS; 2020-12-18)
DX: T84.7XXA Infection and inflammatory reaction due to other internal orthopedic prosthetic devices, implants and grafts, initial encounter (principal); T81.32XA Disruption of internal operation (surgical) wound, not elsewhere classified, initial encounter; E87.1 Hypo-osmolality and hyponatremia; D68.59 Other primary thrombophilia; I25.2 Old myocardial infarction; Z91.19 Patient's noncompliance with other medical treatment and regimen; E78.5 Hyperlipidemia, unspecified; E86.1 Hypovolemia; F41.9 Anxiety disorder, unspecified; F25.0 Schizoaffective disorder, bipolar type; D63.8 Anemia in other chronic diseases classified elsewhere; I11.9 Hypertensive heart disease without heart failure; I25.10 Atherosclerotic heart disease of native coronary artery without angina pectoris; Y83.8 Other surgical procedures as the cause of abnormal reaction of the patient, or of later complication, without mention of misadventure at the time of the procedure; Y92.129 Unspecified place in nursing home as the place of occurrence of the external cause; I87.2 Venous insufficiency (chronic) (peripheral); Z74.09 Other reduced mobility; M21.171 Varus deformity, not elsewhere classified, right ankle; M19.90 Unspecified osteoarthritis, unspecified site; R73.03 Prediabetes; Z20.822 Contact with and (suspected) exposure to COVID-19
CPT/HCPCS: 36415; 36569; 71045; 73600; 73610; 83605; 83735; 84100; 85025; 85651; 87040; 87070; 87077; 93005; A4217; A4663; C1714; G0378; J0690; J1170; J1885; J2185; J2250; J2270; J2405; J3010; J3301; J3370; J3490; J7030; J7060; Q0163